=== PATIENT | female | born 1995 | race Hispanic/Latino ===

== ENCOUNTER 2018-04-23 02:57 | Emergency (ER) | payer OTHER ==
[~2018-04-23] VITALS: Ht 154.9 cm; Wt 53.1 kg
[2018-04-23 03:31] LABS: BASOPHILS % 0.4 % (0.0-1.0); EOSINOPHILS # (AUTO) 0.2 (0.0-0.4); EOSINOPHILS % 1.4 % (0.0-6.0); HEMATOCRIT 34.4 % (34.2-44.1); LYMPHOCYTES # (AUTO) 3.2 (1.0-3.2); LYMPHOCYTES % 28.4 % (18.0-39.1); MEAN CORPUSCULAR HEMOGLOBIN 31.7 pg (28-32); MEAN CORPUSCULAR HGB CONC 34.9 g/dL (31-35); MEAN CORPUSCULAR VOLUME 90.8 fL (81-99); MONOCYTES # (AUTO) 0.5 (0.2-0.8); MONOCYTES % 4.7 % (4.4-11.3); NEUTROPHILS # (AUTO) 7.2 (2.1-6.9); NEUTROPHILS % 64.6 % (38.7-80.0); PLATELET COUNT 383 x10e3/uL (140-360); RED BLOOD COUNT 3.79 x10e6/uL (3.6-5.1); RED CELL DISTRIBUTION WIDTH 11.9 % (11.7-14.4)
[2018-04-23 03:50] LABS: ALANINE AMINOTRANSFERASE 10 IU/L (0-55); ALBUMIN 3.6 g/dL (3.5-5.0); ALKALINE PHOSPHATASE 71 IU/L (40-150); ANION GAP 17.2 mmol/L (8-16); BLOOD UREA NITROGEN 11 mg/dL (7-26); BUN/CREATININE RATIO 16 (6-25); CALCIUM 9.2 mg/dL (8.4-10.2); CARBON DIOXIDE 17 mmol/L (22-29); CHLORIDE 104 mmol/L (98-107); CREATININE, SERUM 0.67 mg/dL (0.57-1.11); EST GLOMERULAR FILTRATION RATE > 60 ML/MIN (60-); GLUCOSE 127 mg/dL (74-118); POTASSIUM 3.2 mmol/L (3.5-5.1); SODIUM 135 mmol/L (136-145)
[2018-04-23] MEDS ORDERED: KETOROLAC TROMETHAMINE 30 MG/ML VIAL IV STA (03:50)
--- NOTE | 2018-04-23 03:50 | NUR ---
DR AGUDELO AT BEDSIDE WITH RN PERFORMING A PELVIC EXAM
[2018-04-23] MEDS ORDERED: KETOROLAC TROMETHAMINE 30 MG/ML VIAL ONE (03:51)
[2018-04-23] MEDS ORDERED: POTASSIUM CHLORIDE 20MEQ/15ML UDC PO ONE (04:00)
[2018-04-23] MEDS ORDERED: AMOXICILLIN (08:46)
--- NOTE | 2018-04-23 18:56 | Operative Report ---
DATE OF PROCEDURE: April 23, 2018 JIG BORER: None. PREOPERATIVE DIAGNOSIS: Missed . POSTOPERATIVE DIAGNOSIS: Missed . PROCEDURE PERFORMED: Suction dilatation and curettage. ANESTHESIA: General. ESTIMATED BLOOD LOSS: 300 mL. COMPLICATIONS: None. FINDINGS: Approximately 6- to 8-week sized gravid uterus with moderate products of conception. SPECIMENS: Products of conception. INDICATION: The patient is a 22-year-old 1, para 0, at approximately 8 weeks gestation by last menstrual period with an empty gestational sac on ultrasound. Prior to the procedure, the risks, benefits, indications, and alternatives were discussed and the patient agreed to proceed. PROCEDURE NOTE: Following anesthesia, the patient was placed in the appropriate dorsal lithotomy position with candy cane stirrups. Prepping and draping was performed in typical sterile manner and a time-out was done. A catheter was used to drain the patient's bladder. A weighted speculum was placed within the vagina and the cervix was grasped with an Allis forceps. Chantal dilators were then used to sequentially dilate the cervix in order to allow for a suction curette to pass. An 8-mm curved suction curette was then placed within the endometrial cavity and contents were evacuated without difficulty on multiple passes. A sharp curette was then used to ensure a good gritty texture in all 4 quadrants and then, the suction curette was passed once more with no additional tissue obtained. After complete evacuation of all tissue, the tenaculum was removed from the cervix, and good hemostasis was noted. The patient tolerated the procedure well and was moved to the recovery room in stable condition. All sponge, lap, needle, and instrument counts were correct x2. Job#: [id number]
== END 2018-04-23 04:13 | disposition home or self-care (01) ==
LOC: ER 02:57
DX: O03.4 Incomplete spontaneous abortion without complication (principal); F41.9 Anxiety disorder, unspecified
CPT/HCPCS: 36415; 80053; 85025; 86850; 86900; 99284; J1885

== ENCOUNTER → 2018-04-23 | Day surgery (SDC) | payer OTHER ==
[~2018-04-23] MED LIST: AMOXICILLIN; DEXAMETHASONE SOD PHOS INJ 4 MG/ML VIAL ONE; FENTANYL CITRATE/PF 100MCG/2 ML INJ ONE; HYDROCODONE/APAP 5MG-325MG TAB ONE; LIDOCAINE HCL 2% LOCAL INJ 5 ML SDV VIAL INJ ONE; MIDAZOLAM HCL 2 MG/2 ML VIAL ONE; ONDANSETRON HCL INJ 2MG/ML 2ML 2 MG/ML VIAL ONE; PROPOFOL IV EMULSION 10 MG/ML 20 ML VIAL ONE; SEVOFLURANE INHAL SOLN 250 ML PEN BTL ONE
--- NOTE | 2018-04-23 10:57 | Diagnostic Imaging Report ---
Transvaginal pelvic ultrasound. History: Missed . Comparison: <None available>. Discussion: Transvaginal evaluation of the pelvis was performed in the transverse and longitudinal planes. The uterus measures 8.8 x 4.3 x 5.7 cm. There is an irregular gestational sac with no pole or heart activity. The ovaries are not visualized due to bowel gas. No mass or cyst is seen in either adnexa. There is no evidence of free fluid. IMPRESSION: Irregular gestational sac within the uterus without evidence of a pole or heart activity. Signed by: Dr. Silvino Moore DO on 04/23/2018 10:54 AM
[2018-04-23 12:25] VITALS: BP 115/80
--- NOTE | 2018-04-23 18:56 | Operative Report ---
DATE OF PROCEDURE: April 23, 2018 [employer] FILM PROCESSING: None. PREOPERATIVE DIAGNOSIS: Missed . POSTOPERATIVE DIAGNOSIS: Missed . PROCEDURE PERFORMED: Suction dilatation and curettage. ANESTHESIA: General. ESTIMATED BLOOD LOSS: 300 mL. COMPLICATIONS: None. FINDINGS: Approximately 6- to 8-week sized gravid uterus with moderate products of conception. SPECIMENS: Products of conception. INDICATION: The patient is a 22-year-old 1, para 0, at approximately 8 weeks gestation by last menstrual period with an empty gestational sac on ultrasound. Prior to the procedure, the risks, benefits, indications, and alternatives were discussed and the patient agreed to proceed. PROCEDURE NOTE: Following anesthesia, the patient was placed in the appropriate dorsal lithotomy position with candy cane stirrups. Prepping and draping was performed in typical sterile manner and a time-out was done. A catheter was used to drain the patient's bladder. A weighted speculum was placed within the vagina and the cervix was grasped with an Allis forceps. Chantal dilators were then used to sequentially dilate the cervix in order to allow for a suction curette to pass. An 8-mm curved suction curette was then placed within the endometrial cavity and contents were evacuated without difficulty on multiple passes. A sharp curette was then used to ensure a good gritty texture in all 4 quadrants and then, the suction curette was passed once more with no additional tissue obtained. After complete evacuation of all tissue, the tenaculum was removed from the cervix, and good hemostasis was noted. The patient tolerated the procedure well and was moved to the recovery room in stable condition. All sponge, lap, needle, and instrument counts were correct x2. Job#: [id number] CQ
== END | disposition home or self-care (01) ==
LOC: OR 08:05
PROVIDERS: ATTEND Obstetrics & Gynecology Obstetrics
DX: O02.1 Missed abortion (principal)
CPT/HCPCS: 36415; 59820; 76817; 84702; 88305; J1100; J2001; J2250; J2405; J2704